=== PATIENT | female | born 1995 | race Caucasian/White ===

== ENCOUNTER 2017-09-26 05:42 | Inpatient (IN) | payer MEDICAID ==
[~2017-09-26] VITALS: Ht 165.1 cm; Wt 73.6 kg
[~2017-09-26 05:42] MED LIST: MOTRIN 800800 MG/TAB PO; NO HOME MEDICATIONS; NORCO 325 MG-51 TAB PO; PERCOCET 325 MG1 TA2 PO; PRENATAL1 TA7 PO; PROMETHAZINE12.5 M5 PO; TUMS SMOOTHIES750 M1 PO
[2017-10-17] MEDS ORDERED: PEPTO BISMOL262 MG PO (10:24)
[2017-10-17] MEDS ORDERED: PROAIR HFA0.09 MG/AC IH (10:27)
[2017-11-03] VITALS (24 sets, daily range): BP systolic 102–135; BP diastolic 56–89; PULSE 69–103; TEMP 98–98.5
[2017-11-03 07:53] LABS: BASO # 0.1 (0.0-0.2); BASO % 0.6 % (0.0-2.0); EOS # 0.1 (0.0-0.7); EOS % 1.1 % (0-4.0); GRAN # 5.5 (1.4-6.5); GRAN % 65.4 % (42.2-75.2); HEMATOCRIT 37.1 % (37.0-47.0); HEMOGLOBIN 12.5 g/dl (12.5-16.0); LYMPH # 2.1 (1.2-3.4); LYMPH % 24.9 % (20.0-51.0); MEAN CELL VOLUME 88 fl (80.0-100.0); MEAN CORPUSCULAR HEMOGLOBIN 30 pg (27.0-31.0); MEAN CORPUSCULAR HGB CONC 34 g/dl (33.0-37.0); MONO # 0.6 (0.1-0.6); MONO % 6.9 % (1.7-9.3); PLATELET COUNT 268 K/mm3 (130-400); RED BLOOD COUNT 4.21 M/mm3 (4.10-5.30); REDCELL DISTRIBUTION WIDTH-CV 13.2 % (11.5-14.5)
[2017-11-04 08:00] VITALS: BP 117/80; PULSE 72; TEMP 97.9
[2017-11-04] MEDS ORDERED: IBU800 M1 PO (09:16)
[2017-11-04 19:30] VITALS: BP 108/78; PULSE 83; TEMP 98
[2017-11-05 08:00] VITALS: BP 124/79; PULSE 76; TEMP 97.8
== END 2017-11-05 10:56 | disposition home or self-care (01) | DRG 775 ==
LOC: LDRO → LDR 11-03 06:55 → OB 11-03 06:55 → LDR 11-03 13:05 → OB 11-03 14:00 → LDRO 11-10 05:42 → EDSTATUS 11-10 11:49
PROVIDERS: Obstetrics & Gynecology
PROC: 10E0XZZ Delivery of Products of Conception, External Approach (ICD-10-PCS; principal; 2017-11-03)
PROC: 3E033VJ Introduction of Other Hormone into Peripheral Vein, Percutaneous Approach (ICD-10-PCS; 2017-11-03)
DX: O70.0 First degree perineal laceration during delivery (principal); Z3A.39 39 weeks gestation of pregnancy; Z37.0 Single live birth
CPT/HCPCS: J2590; J7120

== ENCOUNTER 2017-10-17 09:37 | Outpatient (CLI) | payer MEDICAID ==
[~2017-10-17] VITALS: Ht 165.1 cm; Wt 67.7 kg
[2017-10-17 10:00] VITALS: BP 117/79; PULSE 123; TEMP 97.9
[2017-10-17 10:20] VITALS: PULSE 120
[2017-10-17] MEDS ORDERED: PEPTO BISMOL262 MG PO (10:24)
[2017-10-17] MEDS ORDERED: PROAIR HFA0.09 MG/AC IH (10:27)
[2017-10-17 10:41] LABS: COLLECTION METHOD CLEAN CATCH
[2017-10-17 10:50] LABS: BASO % 0.4 % (0.0-2.0); EOS % 0.2 % (0-4.0); GRAN # 7.1 (1.4-6.5); GRAN % 84.9 % (42.2-75.2); HEMATOCRIT 37.5 % (37.0-47.0); HEMOGLOBIN 12.9 g/dl (12.5-16.0); LYMPH # 0.7 (1.2-3.4); LYMPH % 8.1 % (20.0-51.0); MEAN CELL VOLUME 88 fl (80.0-100.0); MEAN CORPUSCULAR HEMOGLOBIN 30 pg (27.0-31.0); MEAN CORPUSCULAR HGB CONC 34 g/dl (33.0-37.0); MEAN PLATELET VOLUME 10.6 fl (7.4-10.4); MONO # 0.4 (0.1-0.6); MONO % 5.2 % (1.7-9.3); PLATELET COUNT 226 K/mm3 (130-400); RED BLOOD COUNT 4.27 M/mm3 (4.10-5.30); REDCELL DISTRIBUTION WIDTH-CV 12.8 % (11.5-14.5)
[2017-10-17 10:58] LABS: ALBUMIN 3.6 gm/dL (3.5-5.0); BILIRUBIN,TOTAL 0.8 mg/dL (0.0-1.0); CALCIUM 9.2 mg/dL (8.4-10.2); CREATININE, serum 0.58 mg/dL (0.52-1.25); PH 6 (5-8); POTASSIUM 3.6 mmol/L (3.4-5.0); SQUAMOUS EPITHELIAL 0-2 /hpf; TOTAL PROTEIN 7.4 gm/dL (6.4-8.2); URINE APPEARANCE Clear; URINE BACTERIA None Seen /hpf; URINE BILIRUBIN Negative (NEGATIVE); URINE BLOOD Negative (NEGATIVE); URINE COLOR Yellow; URINE GLUCOSE Negative (NEGATIVE); URINE KETONE Negative (NEGATIVE); URINE LEUKOCYTE ESTERASE Negative (NEGATIVE); URINE NITRATE Negative (NEGATIVE); URINE PROTEIN(semi-quant) Negative (NEGATIVE); URINE RBC None Seen /hpf; URINE UROBILINOGEN Negative (NEGATIVE)
[2017-10-17 11:00] VITALS: BP 117/81; PULSE 106
== END 2017-10-17 11:45 | disposition home or self-care (01) ==
LOC: LDRO 09:37 → LDR 09:50 → LDRO 11:45
PROVIDERS: Student in an Organized Health Care Education/Training Program
DX: O62.9 Abnormality of forces of labor, unspecified (principal); Z3A.36 36 weeks gestation of pregnancy
CPT/HCPCS: OP